=== PATIENT | male | born 1975 | race Caucasian/White ===

== ENCOUNTER 2018-12-14 04:21 | Emergency (ER) | payer OTHER, SELFPAY ==
[2018-12-14 04:22] VITALS: BP 171/91; PULSE 89; RESP 18; TEMP 36.7; O2SAT 99; BMI 37.6
--- NOTE | 2018-12-14 04:39 | ED.VIS.GEN ---
History of Present Illness Chief Complaint: Complaint Informant: Patient Onset: Hours - about 30 Context: Gradual Onset Timing: Continuous Quality: frequent urination without pain Current Severity: Mild - suprapubic pressure Maximum Severity: Mild Relieved by: temporarily by urinating Associated Symptoms: no fever, dysuria, hematuria, perineal pain, back pain, n/v Narrative: Patient states he has been urinating frequently, sometimes every 15 minutes or so, and each time it seems to be quite a bit of urine. Just now, he has noticed a dry mouth. He has not had polydipsia. He is not a known diabetic but now is concerned he might be. His urine does not look dark or bloody. He has had 2 normal bowel movements in the past 24 hours, and has had no pain with doing so, no nausea or vomiting or abdominal pain although he has some suprapubic pressure. He is and monogamous and has no urethral discharge or suspicion for STDs. No history of STDs. He is healthy. Prior similar symptoms: No Recent Illness/Hospitalization: No Past Medical History - Allergies and Home Meds Allergies/Adverse Reactions: Allergies amoxicillin Allergy (Verified 12/14/18 04:26) Rash sulfamethoxazole [From Septra] Allergy (Verified 12/14/18 04:26) Rash trimethoprim [From Septra] Allergy (Verified 12/14/18 04:26) Rash Primary Care Physician: Gary Womack MD [COURTESY STAFF PHYSICIAN] - Past Medical History: None Lives: With Family Smoking Status: Never smoker Review of Systems General: Denies: Chills, Fever, Sweats Eyes: Denies: Visual changes - bilaterally, Diplopia ENT: Reports: - - Dry mouth. Denies: Rhinorrhea, Sore throat Cardiovascular: Denies: Chest pain, Palpitations Respiratory: Denies: Dyspnea, Cough, Dyspnea on exertion Gastrointestinal: Reports: Abdominal pain. Denies: Nausea, Vomiting, Diarrhea, Melena, Hematochezia Genitourinary: Reports: Frequency. Denies: Dysuria, Hematuria Musculoskeletal: Denies: Back pain, Extremity Pain Skin: Denies: Rash, Wounds Neurological: Denies: Headache, Weakness, Numbness Physical Exam Vital Signs/Narrative: Vital Signs Temp Pulse Resp BP Pulse Ox 12/14/18 04:22 98.1 F 89 18 171/91 H 99 Inital Vital Signs reviewed: Yes General: Well nourished, Well developed, No Acute Distress Head: Normocephalic, Atraumatic Eyes: Perrl, EOMI ENT: Moist mucous membranes, No rhinorrhea Neck: Supple, Nontender Cardiovascular: Regular rate, Regular rhythm, No murmurs. Negative for: Tachycardia Respiratory: No distress, CTA bilaterally, Chest nontender Abdomen: Soft, Nontender, Nondistended, Normal bowel sounds Back: Nontender, Normal Inspection. Negative for: CVA tenderness Extremities: Nontender, No edema Skin: Normal color, No rash Neurological: Alert, Oriented x3, Cranial nerves II-XII grossly intact, Normal Strength, Normal Sensation Psychological: Normal affect, Normal Mood Diagnostic/Tx/Re-eval Laboratory Tests 12/14/18 12/14/18 12/14/18 Range/Units 04:55 04:55 04:25 WBC 11.4 H (4.4-11.0) K/mm3 RBC 5.47 (4.6-6.2) M/mm3 Hgb 16.7 H (13.0-16.5) g/dL Hct 48.1 (40-54) % MCV 87.9 (80-94) fL MCH 30.5 (27.0-32.0) pg MCHC 34.7 (32-36) g/dL RDW Std Deviation 39.0 (35.1-43.9) fl RDW Coeff of Sharonda 12.2 (11.6-14.6) % Plt Count 224 (150-450) K/mm3 MPV 9.7 (6.2-12.0) fl Immature Gran % (Auto) 0.400 (0.0-0.9) % Neut % (Auto) 72.2 H (47-70) % Lymph % (Auto) 18.9 L (19-41) % [place] % (Auto) 7.4 (0-10) % Eos % (Auto) 0.9 (0-5) % Baso % (Auto) 0.2 (0-1) % Absolute Neuts (auto) 8.2 H (2.0-7.7) X10^3/uL Absolute Lymphs (auto) 2.15 (0.83-4.51) X10^3/uL Nucleated RBC % 0 (0-5) % Sodium 142 (136-145) mmol/L Potassium 3.5 (3.5-5.1) mmol/L Chloride 106 (98-107) mmol/L Carbon Dioxide 27.0 (21.0-32.0) mmol/L Anion Gap 9 (5-15) BUN 19 H (7-18) mg/dL Creatinine 1.08 (0.70-1.30) mg/dL Estim Creat Clear Calc 98.80 ml/min Est GFR (MDRD) Af Amer 97 (>60) mL/min Est GFR (MDRD) Non-Af 80 (>60) mL/min BUN/Creatinine Ratio 17.6 (10-20) RATIO Glucose 113 H (74-106) mg/dL Calcium 8.7 (8.5-10.1) mg/dL Urine Color Straw (Yellow) Urine Clarity Clear (Clear) Urine pH 6.5 (5.0 - 8.0) Ur Specific Joy 1.010 (1.002-1.030) Urine Protein Negative (Negative) mg/dl Urine Glucose (UA) Normal (Normal) mg/dl Urine Ketones Negative (Negative) mg/dl Urine Occult Blood Negative (Negative) /ul Urine Nitrite Negative (Negative) Urine Bilirubin Negative (Negative) mg/dL Urine Urobilinogen Normal (Normal) mg/dl Ur Leukocyte Esterase Negative (Negative) /ul Urine RBC 0 SEEN (0-5) /hpf Urine WBC 0 SEEN (0-5) /hpf Ur Squamous Epith Cells 0 SEEN (0-5) /hpf Urine Bacteria 0 SEEN (None Seen) /hpf Urine Mucus 0 SEEN (<or=2+) /hpf - Medical Decision Making Urinalysis shows no signs of infection, and no glycosuria. Labs show mild prerenal azotemia but otherwise are unremarkable and he is not hyperglycemic; he last ate some peanut butter 3 or 4 hours prior to arrival and his blood sugar is 113 which in context is within normal limits. His postvoid residual on the bedside ultrasound was reading 11 cc, so he is emptying. He does not have symptoms of acute prostatitis. However he could have some type of enlarged prostate issue, or some type of bladder issue. Kidney stone is in the differential but less likely due to lack of pain. He was agreeable to undergo CT scanning of the abdomen and pelvis for further screening. Patient change his mind and does not want the CT and prefers to go home and follow-up with urology. He refused prostate exam at this time and prefers to see urology first. We discussed the prostate being the potential cause of these problems, and the bladder being in the differential diagnosis as well, but the urinalysis shows no signs of infection. I will give him a prescription for Flomax to try until he follows up. ED Disposition - Plan for ED Patient: Disposition: Home or Assisted Living Diagnosis: Urinary frequency Instructions: Benign Prostatic Hyperplasia, Prostatitis Prescriptions: Tamsulosin HCl [Flomax] 0.4 mg PO DAILY #14 cap Prescription Printed Referrals: Ross Gamble MD [STAFF PHYSICIAN] - As soon as possible (Call for appointment)
--- NOTE | 2018-12-14 04:44 | NURSING ---
pt voided in toilet and bladder scan for 11cc of straw colored urine
[2018-12-14 04:48] LABS: Bacteria 0 SEEN /hpf (None Seen); Mucous, Urine 0 SEEN /hpf (<or=2+); Red Blood Cells-Urine 0 SEEN /hpf (0-5); Squamous Epithelial Cells - UA 0 SEEN /hpf (0-5); White Blood Cells 0 SEEN /hpf (0-5)
[2018-12-14 04:50] LABS: Color, Urine Straw (Yellow); Glucose, Dipstick Normal (Normal); Ketone-Dipstick Negative (Negative); Leukocyte Esterase-Dipstick Negative /ul (Negative); Nitrite-Dipstick Negative (Negative); Occult Blood-Urine Negative /ul (Negative); Protein-Dipstick Negative (Negative); Urine Bilirubin Dipstick Negative (Negative); Urine Clarity Clear (Clear); Urine Urobilinogen Normal (Normal); Urine pH 6.5 (5.0 - 8.0)
[2018-12-14 05:01] LABS: Absolute Lymphocyte Count 2.15 X10^3/uL (0.83-4.51); Absolute Neutrophil Count 8.2 X10^3/uL (2.0-7.7); Basophil# 0.02 X10^3/uL; Basophil% 0.2 % (0-1); Eosinophils% 0.9 % (0-5); Hematocrit 48.1 % (40-54); Hemoglobin 16.7 g/dL (13.0-16.5); Lymphocyte # 2.15 X10^3/ul (4.0); Lymphocyte % 18.9 % (19-41); Mean Corp Hgb Conc 34.7 g/dL (32-36); Mean Corpuscular Hgb 30.5 pg (27.0-32.0); Mean Corpuscular Volume 87.9 fL (80-94); Mean Platelet Vol. 9.7 fl (6.2-12.0); Monocyte# 0.84 X10^3/uL; Monocyte% 7.4 % (0-10); NRBC Flagged by Analyzer 0 % (0-5); Neutrophil # 8.22 X10^3/uL (2.7-7.7); Neutrophil % 72.2 % (47-70); Platelet Count 224 K/mm3 (150-450); RBC Distribution Width CV 12.2 % (11.6-14.6); Red Blood Count 5.47 M/mm3 (4.6-6.2); White Blood Count 11.4 K/mm3 (4.4-11.0)
[2018-12-14 05:15] LABS: Anion Gap 9 (5-15); BUN 19 mg/dL (7-18); BUN/Creat Ratio 17.6 RATIO (10-20); Calcium,Total 8.7 mg/dL (8.5-10.1); Chloride 106 mmol/L (98-107); Creatinine, Serum 1.08 mg/dL (0.70-1.30); EST Glomerular Filtration Rate 80 mL/min (>60); Est Glom Filt Rate - Afr Amer 97 mL/min (>60); Glucose 113 mg/dL (74-106); Potassium 3.5 mmol/L (3.5-5.1); Sodium Level 142 mmol/L (136-145)
== END 2018-12-14 05:57 | disposition home or self-care (01) ==
PROVIDERS: Emergency Provider Emergency Medicine; Family Provider Family Medicine; PCP Family Medicine
DX: R35.0 Frequency of micturition (principal); Z79.899 Other long term (current) drug therapy; R68.2 Dry mouth, unspecified; Z88.2 Allergy status to sulfonamides; Z88.1 Allergy status to other antibiotic agents
CPT/HCPCS: 80048; 81001; 85025; 99283; A4216